=== PATIENT | male | born 1995 | race Caucasian/White ===

== ENCOUNTER 2016-10-01 16:11 | Inpatient (IN) | payer OTHER ==
[~2016-10-01] VITALS: Ht 180.3 cm; Wt 98.7 kg
[2016-10-01] MEDS ORDERED: LIDOCAINE 1% MDV 20ML VIAL As Ordered ONE (16:22)
[2016-10-01 17:30] LABS: MEAN CORPUSCULAR HEMOGLOBIN 31.2 pg (27.0-33.0); RED CELL DISTRIBUTION WIDTH 12.6 % (11.5-14.5); WHITE BLOOD COUNT 9.6 K/mm3 (4.0-10.0)
[2016-10-01 17:44] LABS: ALBUMIN/GLOBULIN RATIO 1.29 (1.00-1.93); ALKALINE PHOSPHATASE 85 U/L (45-117); ALT/SGPT 31 U/L (12-78); ANION GAP 4 MEQ/L (8-16); AST/SGOT 20 U/L (15-37); BILIRUBIN,DIRECT 0.1 MG/DL (0.0-0.2); BILIRUBIN,TOTAL 0.3 MG/DL (0.2-1.0); BLOOD UREA NITROGEN 8 MG/DL (7-18); CALCIUM LEVEL 8.5 MG/DL (8.5-10.1); CARBON DIOXIDE LEVEL 30 MEQ/L (21-32); CHLORIDE LEVEL 106 MEQ/L (98-107); CREATININE FOR GFR 1.01 MG/DL (0.70-1.30); GLOMERULAR FILTRATION RATE > 60.0 (>60); GLUCOSE, FASTING 88 MG/DL (70-105); POTASSIUM SERUM 3.7 MEQ/L (3.5-5.1); SODIUM LEVEL 140 MEQ/L (136-145); TOTAL PROTEIN 7.1 GM/DL (6.4-8.2)
[2016-10-01 18:20] LABS: METHADONE URINE NEGATIVE (NEGATIVE)
[2016-10-01] MEDS ORDERED: ACETAMINOPHEN TAB 650MG DOSE (2X325MG) PO PRN (19:45)
[2016-10-01] MEDS ORDERED: MOM 30ML SUSPENSION UDC PO PRN (19:45)
[2016-10-01] MEDS ORDERED: traZODone 50 MG TAB PO PRN (19:45)
[2016-10-01] MEDS ORDERED: MAALOX 30 ML SUSP *UDC PO PRN (19:45)
[2016-10-01 20:02] VITALS: BP 136/90
[2016-10-02 07:01] VITALS: BP 126/69
[2016-10-02 08:58] VITALS: BP 134/66
[2016-10-02 08:59] VITALS: BP_SYST 130; BP_DIAS 77; BP_DIAS 83
--- NOTE | 2016-10-02 11:32 | HPEPDOC ---
Medical History and Physical Date of Admission Oct 01, 2016 at 17:49 History and Physical PCP: [facility] ATTENDING: Dr. Franklin Jordan HPI: 21yoM admitted to [facility] for Unspecified depressive disorder, being medically examined today. Patient with lacerations bilateral forearms. 7 sutures left forearm, 2 on right forearm. Denies any fevers, chills, weakness, fatigue, HANSEN, CP, SOB, cough, palpitations, abdominal pain, N/V/D or changes in bowel or bladder habits. 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 One sister trisomy 16 Children: None ROS: As noted in HPI, otherwise 11pt ROS of systems reviewed and remarkable. Patient reports history of right knee pain. Some clicking. Denies any erythema or edema. PE: GEN: 21yoM, appears stated age. Well-nourished, well developed. No acute distress. Alert and oriented x 3. Pleasant, interactive. HEENT: Normocephalic, atraumatic. Pupils are equal, round, and reactive to light. Extraocular movements are intact. No nystagmus appreciated. Sclera are nonicteric. Conjunctiva without injection. Nose midline. Nasal turbinates without bogginess. EACs both patent BL. TMs both visualized and ivory with good cone of light, no bulging or erythema. No facial asymmetry. Moist mucous membranes. Dentition fair. Pharynx pink and moist, no cobblestoning. Neck supple , trachea midline. No lymphadenopathy or thyromegaly appreciated. CHEST: Regular rate and rhythm, +S1, +S2 LUNGS: Clear to auscultation bilaterally. No wheezes, rales, or rhonchi. Breathing appears symmetric and easy. Patient is speaking in full sentences. No accessory muscle use. ABD: Round, soft, non-tender, non-distended. +Bowel sounds throughout. No rebound or guarding. No costovertebral angle tenderness. EXT: Pulses 2+ bilaterally dorsalis pedis and radial. No lower extremity edema appreciated. SKIN: [place], dry, warm. Capillary refill <2sec. No rashes. NEURO: Alert and oriented x 3. Cranial nerves III-XII are intact. No focal deficits appreciated. EKG: Pending. A&P: 21yoM admitted to [facility] for Unspecified depressive disorder 1. Psych. Plan per Psychiatry. Obtain baseline EKG to assure the safety of psychiatric medications as they can prolong the QT interval. 2. Laceration bilateral forearm. Sutures intact. Dry dressing. No signs of infection. Monitor. Patient will be due to have sutures removed in 7-10 days. 3. Chronic right knee pain. Patient declines x-ray of the right knee. Tylenol as needed. Follow up with PCP. 4. Follow up with PCP on discharge. 5. Staff member Ed present throughout exam. Vital Signs Vital Signs Date Time Temp Pulse Resp B/P Pulse Ox O2 Delivery O2 Flow Rate FiO2 10/02/16 08:59 95 130/83 10/02/16 08:58 20 97 Room Air 10/02/16 07:01 98.7 Laboratory Data Labs 24H Laboratory Tests 2 10/01/16 16:55: Acetaminophen Level < 2.0L, Aspartate Amino Transf (AST/SGOT) 20, Alanine Aminotransferase (ALT/SGPT) 31, Alkaline Phosphatase 85, Total Bilirubin 0.3, Direct Bilirubin 0.1, Albumin 4.0, Albumin/Globulin Ratio 1.29, Anion Gap 4L, Calcium Level 8.5, Ethyl Alcohol Level < 0.003, Glomerular Filtration Rate > 60.0, Salicylates Level < 1.7L, Thyroid Stimulating Hormone (TSH) 0.749, Total Protein 7.1, Urine Amphetamines Screen NEGATIVE, Urine Benzodiazepines Screen NEGATIVE, Urine Opiates Screen NEGATIVE, Urine Barbiturates Screen NEGATIVE, Urine Cannabinoids Screen NEGATIVE, Urine Cocaine Metabolite Screen NEGATIVE, Urine Methadone Screen NEGATIVE, Urine Phencyclidine Screen NEGATIVE CBC/BMP Laboratory Tests 10/01/16 16:55 Red Blood Count 4.57, Mean Corpuscular Volume 89.0, Mean Corpuscular Hemoglobin 31.2, Mean Corpuscular Hemoglobin Concent 35.0, Red Cell Distribution Width 12.6 Home Medications No Active Prescriptions or Reported Meds Allergies Coded Allergies: No Known Allergies (Unverified , 10/01/16) Yovana Leon Oct 02, 2016 11:32
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
[2016-10-02 18:00] VITALS: BP 133/64
[2016-10-03 06:29] VITALS: BP 124/64
[2016-10-03] MEDS ORDERED: PROPRANOLOL 10 MG TAB PO PRN (14:30)
[2016-10-03 18:00] VITALS: BP 144/71
--- NOTE | 2016-10-03 19:11 | IPNPDOC ---
[facility] Progress Note Progress Note DATE OF SERVICE: 10/03/16 INTERVAL HISTORY: Medication Side effects: Has up and started on any psychiatric medication Behavior/events: No events overnight Group Attendance: Has attended groups Psychiatric Symptoms: Patient complained of multiple instances of anger, sadism , chronic emptiness from a childhood that was characterized by an emotionless father forbade any sensitivity or warmth. The patient related symptoms consistent with antisocial personality disorder/malignant narcissism VITAL SIGNS: See below. NEW TEST RESULTS: See below CURRENT MEDICATIONS: See below. MENTAL STATUS EXAMINATION: General: Well dressed with good hygiene Speech: Spontaneous and fluid Thought processes: Linear and logical Thought content: Future orientated Abstract reasoning, and computation: Intact Description of associations: Intact Description of abnormal or psychotic thoughts:Denies any suicidal or homicidal ideation. Denies any auditory or visual hallucinations. Does not appear to be responding to internal stimuli. Does not appear to be endorsing any bizarre or paranoid ideation. Judgment: Poor Insight: Poor Orientation: Alert and orientated 3 Recent and remote memory: Intact Attention span and concentration: Intact Fund of knowledge: Adequate Mood: "Fine" Affect: Euthymic with a full range DIAGNOSES: 1. Antisocial personality disorder. 2. Status post suicide attempt. ASSESSMENT: The patient screens positive for antisocial personality disorder and due to the multiple episodes of sadism reported by collateral sources as well as meeting criteria for borderline-like traits appear to support him being primarily antisocial with borderline traits, which was described by Tanisha as "malignant narcissism" MANAGEMENT PLAN: Medications: On no current psychotropic medication, talked with patient about starting Inderal 10 mg every 6 hours when necessary for anxiety and agitation as this might have some benefit for his impulsive and aggressive behavior Psychotherapy: Encourage group attendance Social: None Misc: Slit wrists appear to be healing well Disposition: The patient will need of further inpatient stay to address disposition and safety planning. TIME SPENT: minutes. Vital Signs Vital Signs Date Time Temp Pulse Resp B/P Pulse Ox O2 Delivery O2 Flow Rate FiO2 10/03/16 06:29 98.3 69 16 124/64 10/02/16 08:58 97 Room Air Current Medications Current Medications Acetaminophen (Tylenol Tab) 650 mg Q6HP PRN PO HEADACHE or DISCOMFORT; Start at 19:45; Stop 10/31/16 at 19:44 Al Hydrox/Mg Hydrox/Simethicone (Mylanta) 30 ml Q4HP PRN PO HEARTBURN/ INDIGESTION; Start 10/01/16 at 19:45; Stop 10/31/16 at 19:44 Home Med (Med Rec Complete!) ASDIRECTED XX ; Start 10/01/16 at 18:00; Stop at 18:07; Status DC Magnesium Hydroxide (Milk Of Magnesia) 30 ml DAILYPRN PRN PO CONSTIPATION; Start 10/01/16 at 19:45; Stop 10/31/16 at 19:44 Propranolol HCl (Inderal) 10 mg Q6H PRN PO anxiety/agitation; Start 10/03/16 at 14:30; Stop 11/02/16 at 14:29 Trazodone HCl (Desyrel) 50 mg QHSP PRN PO INSOMNIA; Start 10/01/16 at 19:45; Stop 10/31/16 at 19:44 Allergies Coded Allergies: No Known Allergies (Unverified , 10/01/16) GME ATTESTATION My preceptor for this patient encounter was physically present in the building during the encounter and was fully available. As needed, all aspects of the patient interview, examination, medical decision making process, and medical care plan development were reviewed and approved by the preceptor. Preceptor is aware and concurs with the plan as stated in the body of this note and will attest to such by his/her cosignature. YUMIKO DILLON DO Oct 03, 2016 19:11
[2016-10-04 06:37] VITALS: BP 142/68
[2016-10-04 18:00] VITALS: BP 135/69
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
[2016-10-05 06:20] VITALS: BP 135/69
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
[2016-10-05 18:00] VITALS: BP 139/79
[2016-10-06 06:43] VITALS: BP 130/75
--- NOTE | 2016-10-06 12:36 | IPN ---
DATE: 10/06/2016 I met with Osbaldo today. His mood is improved. 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 He is still pondering difficulties with his marriage. Further information will be sought in terms of the history that he gave us due to certain inconsistencies and reports by his mother. No change in treatment today. MENTAL STATUS EXAMINATION: Speech is normal. No disturbance of thought process. No loose associations. No abnormal psychotic thoughts. Judgment and insight are still in question. Orientation in three spheres is present. No disturbance of recent and remote memory. Attention and concentration are adequate. Fund of knowledge is full. Mood is neutral. Affect is congruent. Laboratory indicates hematocrit slightly low. Serum chemistry is unremarkable. Toxicology screen is negative. No changes in medications as of today. Appetite and sleep are adequate. DIAGNOSIS: Dysthymic disorder. Rule out personality disorder.
[2016-10-06 18:00] VITALS: BP 150/81
[2016-10-07 06:25] VITALS: BP 120/74
--- NOTE | 2016-10-07 10:19 | IPN ---
DATE OF SERVICE: 10/07/2016 Osbaldo Iglesias was on the phone today speaking to his . His mood is neutral. We will find further information as to what occurred in his marriage and what plans he has. Then, we will be referring him back to chain of command. No change in medications. Mood is good. Affect is neutral. Full fund of information. No disturbances of language. Attention and concentration are good. Recent and remote memory intact. Fully oriented. Judgment and insight are fair. No abnormal or psychotic thoughts. No loose associations. Thought process are intact. No disturbances of speech. IMPRESSION: Reactive depression, possible borderline personality, marital stressors.
[2016-10-07 18:00] VITALS: BP 130/70
[2016-10-08 06:11] VITALS: BP 111/65
[2016-10-08] MEDS ORDERED: PROP10TAB PO (07:19)
[2016-10-08] MEDS ORDERED: PROP10TA56 PO (08:45)
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
== END 2016-10-08 10:20 | disposition home or self-care (01) | DRG 881 ==
LOC: M ED 17:05 → M ED INP 17:49 → M PSY 19:55
PROVIDERS: ADMIT Psychiatry & Neurology Psychiatry; ATTEND Psychiatry & Neurology Child & Adolescent Psychiatry
PROC: 0HQEXZZ Repair Left Lower Arm Skin, External Approach (ICD-10-PCS; principal; 2016-10-01)
PROC: 0HQDXZZ Repair Right Lower Arm Skin, External Approach (ICD-10-PCS; 2016-10-01)
DX: F43.21 Adjustment disorder with depressed mood (principal); S51.811A Laceration without foreign body of right forearm, initial encounter; S51.812A Laceration without foreign body of left forearm, initial encounter; X78.8XXA Intentional self-harm by other sharp object, initial encounter; Y92.828 Other wilderness area as the place of occurrence of the external cause; M25.561 Pain in right knee; F60.2 Antisocial personality disorder; F60.3 Borderline personality disorder; M54.5 Low back pain; M25.552 Pain in left hip; Z63.0 Problems in relationship with spouse or partner

== ENCOUNTER 2016-10-09 16:45 | Emergency (ER) | payer OTHER ==
[~2016-10-09] VITALS: Ht 177.8 cm; Wt 95.3 kg
[~2016-10-09 16:45] MED LIST: PROP10TA56 PO; PROP10TAB PO
[2016-10-09 18:26] LABS: MEAN CORPUSCULAR HEMOGLOBIN 32.6 pg (27.0-33.0); MEAN CORPUSCULAR HGB CONC 36.2 g/dl (32.0-36.5); MEAN CORPUSCULAR VOLUME 90.1 fl (80.0-96.0); RED CELL DISTRIBUTION WIDTH 12.6 % (11.5-14.5); WHITE BLOOD COUNT 9.6 K/mm3 (4.0-10.0)
[2016-10-09 18:45] LABS: METHADONE URINE NEGATIVE (NEGATIVE)
[2016-10-09 18:58] LABS: ALBUMIN/GLOBULIN RATIO 1.18 (1.00-1.93); ALKALINE PHOSPHATASE 92 U/L (45-117); ALT/SGPT 42 U/L (12-78); ANION GAP 6 MEQ/L (8-16); AST/SGOT 41 U/L (15-37); BILIRUBIN,DIRECT < 0.1 MG/DL (0.0-0.2); BILIRUBIN,TOTAL 0.3 MG/DL (0.2-1.0); BLOOD UREA NITROGEN 12 MG/DL (7-18); CALCIUM LEVEL 8.6 MG/DL (8.5-10.1); CARBON DIOXIDE LEVEL 28 MEQ/L (21-32); CHLORIDE LEVEL 109 MEQ/L (98-107); CREATININE FOR GFR 1.17 MG/DL (0.70-1.30); GLOMERULAR FILTRATION RATE > 60.0 (>60); GLUCOSE, FASTING 89 MG/DL (70-105); POTASSIUM SERUM 3.9 MEQ/L (3.5-5.1); SODIUM LEVEL 143 MEQ/L (136-145); TOTAL PROTEIN 7.4 GM/DL (6.4-8.2)
[2016-10-09 20:37] VITALS: BP 148/83
== END 2016-10-09 20:39 | disposition home or self-care (01) ==
LOC: M ED 18:18
DX: Z48.02 Encounter for removal of sutures (principal); F41.1 Generalized anxiety disorder; F43.21 Adjustment disorder with depressed mood; Z79.899 Other long term (current) drug therapy
CPT/HCPCS: 36415; 80048; 80076; 80306; 84443; 85027; 99285; G0480

== ENCOUNTER 2016-10-25 02:14 | Inpatient (IN) | payer OTHER ==
[~2016-10-25] VITALS: Ht 180.3 cm; Wt 98.7 kg
[2016-10-25 02:52] LABS: MEAN CORPUSCULAR HEMOGLOBIN 31.9 pg (27.0-33.0); MEAN CORPUSCULAR HGB CONC 35.5 g/dl (32.0-36.5); MEAN CORPUSCULAR VOLUME 89.9 fl (80.0-96.0); RED CELL DISTRIBUTION WIDTH 12.6 % (11.5-14.5); WHITE BLOOD COUNT 12.8 K/mm3 (4.0-10.0)
[2016-10-25 03:26] LABS: ALBUMIN 3.9 GM/DL (3.2-5.2); ALBUMIN/GLOBULIN RATIO 1.08 (1.00-1.93); ALKALINE PHOSPHATASE 116 U/L (45-117); ALT/SGPT 39 U/L (12-78); ANION GAP 10 MEQ/L (8-16); AST/SGOT 25 U/L (15-37); BILIRUBIN,DIRECT < 0.1 MG/DL (0.0-0.2); BILIRUBIN,TOTAL 0.3 MG/DL (0.2-1.0); BLOOD UREA NITROGEN 16 MG/DL (7-18); CALCIUM LEVEL 8.3 MG/DL (8.5-10.1); CARBON DIOXIDE LEVEL 26 MEQ/L (21-32); CHLORIDE LEVEL 109 MEQ/L (98-107); CREATININE FOR GFR 1.19 MG/DL (0.70-1.30); GLOMERULAR FILTRATION RATE > 60.0 (>60); GLUCOSE, FASTING 110 MG/DL (70-105); POTASSIUM SERUM 3.3 MEQ/L (3.5-5.1); SODIUM LEVEL 145 MEQ/L (136-145); TOTAL PROTEIN 7.5 GM/DL (6.4-8.2)
[2016-10-25] MEDS ORDERED: LIDOCAINE W/EPINEPHRINE 1% 20ML VIAL As Ordered ONE (03:27)
[2016-10-25 03:47] LABS: METHADONE URINE NEGATIVE (NEGATIVE)
[2016-10-25] MEDS ORDERED: PROP10TA56 PO (05:10)
[2016-10-25] MEDS ORDERED: traZODone 50 MG TAB PO PRN (06:45)
[2016-10-25] MEDS ORDERED: MOM 30ML SUSPENSION UDC PO PRN (06:45)
[2016-10-25] MEDS ORDERED: ACETAMINOPHEN TAB 650MG DOSE (2X325MG) PO PRN (06:45)
[2016-10-25] MEDS ORDERED: MAALOX 30 ML SUSP *UDC PO PRN (06:45)
[2016-10-25 08:14] VITALS: BP 137/71
[2016-10-25] MEDS: CitaloPRAM (CeleXA) 10 MG TABLET PO SCH (09:00)
[2016-10-25 18:00] VITALS: BP 143/71
--- NOTE | 2016-10-25 23:14 | MHHPE ---
DATE OF ADMISSION: 10/25/2016 LEGAL STATUS AT ADMISSION: 9.39 legal status. CHIEF COMPLAINT: "I am very tired." HISTORY OF PRESENT ILLNESS: 21-year-old male with history of depression, adjustment disorder with depressed mood, admitted to our unit on a 9.39 legal status. According to the chart, patient came to the emergency department brought by [place] Police on a 9.41. According to the chart, patient violated a stay away order and then attempted suicide by cutting his arms. The police responded to a residence, he was witnessed speeding away in his vehicle, resulting in a high speed anna from [place] to the main gate of [place]. The police stated that the patient refused to comply with orders to surrender and required both a Taser and pepper spray. As a result of the above, patient has numerous criminal charges and the police would like notification when he is discharged. He stated that in the emergency department that he continued to struggle since discharge from our unit on 10/08/2016, that he lied about feeling better, he wanted to be discharged and get back home to his , but then he learned at discharge that he could not be going home to her since she had an order of protection in place. Patient stated in the emergency department that while at the residence his returned home with her new boyfriend, prompting his suicide attempt by cutting his arms. It was obvious that this was a suicidal attempt because patient required stitches and also patient stated "I didn't get very far with it again," referring to his cuts on 10/01/2016. Patient stated that he continues to feel depressed, suicidal, and hopeless, and was unable to contract for safety. He came up to the unit and I am seeing him after coming from the emergency department. He states that he is very tired, that he has not been able to sleep, and he is not ready to answer questions. He reports depressed mood, feelings of helplessness and hopelessness, poor impulse control, and irrational problems. Patient is laying in bed and falling asleep with very poor eye contact, sad, restricted facial expression. There is no evidence of psychotic symptoms during the interview, no auditory or visual hallucinations or delusions. However, most of the information is gathered from the review of the chart. PAST MEDICAL HISTORY: No acute medical problems. Patient has several self-inflicted wounds in his arms that required stitches. PAST PSYCHIATRIC HISTORY: As above, patient has been diagnosed with adjustment disorder with depressed mood. He was admitted to our unit on 10/01/2016. FAMILY HISTORY: No psychiatric family history. SOCIAL HISTORY: Was unable to obtain. 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 As above, patient has been from his and his has an order of protection against him. SUBSTANCE ABUSE HISTORY: He is denying problems with drugs or alcohol. Urine drug screen and blood alcohol level are negative. REVIEW OF SYSTEMS: Unable to obtain. PHYSICAL EXAMINATION: As per physician family readiness support assistant. LABORATORY DATA: CBC is unremarkable except hematocrit of 40.6. CMP shows a potassium of 3.3, rest within normal limits. TSH within normal limits. Urine drug screen (UDS) and blood alcohol level are negative. MENTAL STATUS EXAMINATION: Patient is dressed in [facility]. He is lying in bed. Poor eye contact. Mood is depressed and anxious. Affect is restricted. Patient is oriented to time, place, person, and situation. Maintains attention and concentration fairly. No evidence of auditory or visual hallucinations or delusions. Patient reports suicidal ideation and is unable to contract for safety. No homicidal thoughts. Judgment and insight are poor. DIAGNOSES: AXIS I: Undifferentiated depressive disorder. Rule out major depressive disorder versus adjustment disorder with depressed mood. AXIS II: Deferred. AXIS III: Several self-inflicted wounds in both arms. INITIAL TREATMENT PLAN: Patient was admitted on a 9.39 legal status. Complete history was obtained. With his permission, family will be contacted and database will be expanded. His medication regimen will be reviewed and changed accordingly. He will be provided with protected environment. He will be treated with individual, group, and milieu therapies. He will also receive supportive psychoeducation. Discharge planning will commence immediately. Length of stay will be between 7-10 days. Outpatient followup will be strongly recommended. The treatment plan will focus initially on depression, risk for suicide, risk to harm others, poor impulse control.
[2016-10-26 06:57] VITALS: BP 136/85
[2016-10-26] MEDS: CitaloPRAM (CeleXA) 10 MG TABLET PO SCH (09:00)
--- NOTE | 2016-10-26 11:00 | MHIPNPDOC ---
[facility] Progress Note Progress Note DATE OF SERVICE: 10/26/16 HISTORY: Day of admission VITAL SIGNS: See below. NEW TEST RESULTS: na CURRENT MEDICATIONS: See below. MENTAL STATUS EXAMINATION: Patient is a 21-year old male, who is dressed in hospital attire, good eye contact, wearing 2 large bandages, one on each forearm. Speech: Is clean and spontaneous Language skills are grossly intact Thought processes including: goal directed Thought content:, pain, criminal charges . Abstract reasoning, and computation: good. Description of associations: good. Description of abnormal or psychotic thoughts: admits to wanting to due to separation from . Not homicidal. denies psychosis and no symptoms were illicited. Judgment: poor Insight: very limited. Orientation: well oriented to person, place, time and situation. Recent and remote memory: grossly intact Attention span and concentration: good Fund of knowledge: full Mood:depressed. Affect: congruent DIAGNOSES: 1. adjustment disorder with depressed mood 2. r/o MDD 3. ASSESSMENT:Currently patient is refusing Celexa as he feels medication are "a quick fix" to a long standing problem. Education provided and discussed meds and their purpose and their role in treating depressive symptoms. Limits of medication also discussed. Would recommend changing Celexa to Wellbutrin as there is less opportunity for sexual side effects with Wellbutrin. Pt states his told him he had a seizure once but he questions this. He does not have a h/o seizure disorder. Will need to get more info from on this "seizure". Presented pt with the option of long-term psychiatric treatment at [facility] in [place]. He asked about visitors. We will get him a packet of information on the program and answer any questions that we can. Pt reports a lack of respect on the part of the in how they have treated his psychiatric symptoms, calling him a "pussy" and subjecting him to excessive exercise to the point of collapsing. He is not complaining, he is discussing what has happened to him between admissions. He was to start IOP today but tried to get the to set this aside for a month as he did not feel he needed it.This contradicts what he was saying about the not responding appropriately to his concerns.Pt admits he wanted to when he cut himself and was very angry and upset. He felt he needed his right then, as "she is the only one who makes me happy". may a new relationship already. They have been only 5 months, no children. Osbaldo is thinking that they are going to reconcile and get back together. We will have to see what the says about this. He says she is going to lift the restraining order. He denies use of alcohol or drugs. Chart reviewed. MANAGEMENT PLAN: give pt 24 hours to consider medication and placement for long- term treatment. discuss seizure with and restraining order and her view on the future of their marriage. Raise trazodone to 100 mg at hs as pt reports 50 mg is not effective for him. This afternoon pt stated he did not want to go to half-way treatment at [facility] and added "I'd rather go to [facility]". Managed Care Nurse pointed out benefits of treatment over [facility] but pt was not pursuaded to change his mind. It's likely his has influenced him and perhaps does not want him to leave [place]. He said he would consider half-way treatment "later". Sounds like what he wanted to do with IOP. Pt has still not made up his mind about taking medication for depression/anxiety. If he decides against it we will have a serious discussion about his participation in treatment. Managed Care Nurse asked space planner to notify command of pts current decisions and request a meeting so they can present their position to Osbaldo and he can make a decision after talking with them. TIME SPENT: 30 minutes. Vital Signs Vital Signs Date Time Temp Pulse Resp B/P (MAP) Pulse Ox O2 Delivery O2 Flow Rate FiO2 10/26/16 06:57 98.5 80 16 136/85 (102) 10/25/16 07:46 99 Room Air Current Medications Current Medications Acetaminophen (Tylenol Tab) 650 mg Q6HP PRN PO HEADACHE or DISCOMFORT; Start at 06:45; Stop 11/24/16 at 06:44 Al Hydrox/Mg Hydrox/Simethicone (Mylanta) 30 ml Q4HP PRN PO HEARTBURN/ INDIGESTION; Start 10/25/16 at 06:45; Stop 11/24/16 at 06:44 Citalopram Hydrobromide (CeleXA) 10 mg DAILY PO ; Start 10/25/16 at 09:00; Stop 11/24/16 at 08:59 Home Med (Med Rec Complete!) ASDIRECTED XX ; Start 10/25/16 at 05:15; Stop at 05:15; Status DC Magnesium Hydroxide (Milk Of Magnesia) 30 ml DAILYPRN PRN PO CONSTIPATION; Start 10/25/16 at 06:45; Stop 11/24/16 at 06:44 Trazodone HCl (Desyrel) 50 mg QHSP PRN PO INSOMNIA; Start 10/25/16 at 06:45; Stop 11/24/16 at 06:44 Allergies Coded Allergies: No Known Allergies (Unverified , 10/01/16) Veronica Samaniego October 26, 2016 11:00
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
[2016-10-26] MEDS ORDERED: MUPIROCIN 2% CREAM 30GM TOP PRN (11:15)
[2016-10-26 11:34] LABS: MEAN CORPUSCULAR HEMOGLOBIN 31.5 pg (27.0-33.0); MEAN CORPUSCULAR HGB CONC 34.9 g/dl (32.0-36.5); MEAN CORPUSCULAR VOLUME 90.2 fl (80.0-96.0); RED CELL DISTRIBUTION WIDTH 12.7 % (11.5-14.5); WHITE BLOOD COUNT 6.3 K/mm3 (4.0-10.0)
[2016-10-26] MEDS: CEPHALEXIN 500 MG CAP PO SCH ×3 (11:50→21:48)
[2016-10-26] MEDS ORDERED: MUPIROCIN 2% OINT 22 GM TUBE TOP PRN (12:01)
[2016-10-26 12:25] LABS: ALBUMIN 4.1 GM/DL (3.2-5.2); ALBUMIN/GLOBULIN RATIO 1.24 (1.00-1.93); ALKALINE PHOSPHATASE 83 U/L (45-117); ALT/SGPT 36 U/L (12-78); ANION GAP 8 MEQ/L (8-16); AST/SGOT 27 U/L (15-37); BILIRUBIN,TOTAL 0.5 MG/DL (0.2-1.0); BLOOD UREA NITROGEN 9 MG/DL (7-18); CALCIUM LEVEL 9.2 MG/DL (8.5-10.1); CARBON DIOXIDE LEVEL 26 MEQ/L (21-32); CHLORIDE LEVEL 106 MEQ/L (98-107); CREATININE FOR GFR 0.89 MG/DL (0.70-1.30); GLOMERULAR FILTRATION RATE > 60.0 (>60); GLUCOSE, FASTING 90 MG/DL (70-105); POTASSIUM SERUM 4.1 MEQ/L (3.5-5.1); SODIUM LEVEL 140 MEQ/L (136-145); TOTAL PROTEIN 7.4 GM/DL (6.4-8.2)
[2016-10-26 18:00] VITALS: BP 124/67
--- NOTE | 2016-10-26 18:00 | ECGEPIP ---
Stationary ECG Study [facility] Test Date: 2016-10-26 Pat Name: LILIANA VELASQUEZ Department: Room: [place] [address] Gender: M Public Health Doctor: : 1995 Requested By: Yovana Leon Order Number: [id number] Reading MD: Rosi Valdovinos Measurements Intervals [place] Rate: 69 P: 51 OR: 187 QRS: 50 QRSD: 106 T: 11 QT: 374 QTc: 402 Interpretive Statements SINUS RHYTHM WITH MARKED SINUS ARRHYTHMIA PROBABLE EARLY REPOLAR CHANGES NO PRIOR CLINICAL GARDENIA Electronically Signed On 10-26-2016 17:59:41 EDT by Rosi Valdovinos
[2016-10-26] MEDS: traZODone 100 MG TAB PO SCH (21:00)
[2016-10-27 06:34] VITALS: BP 120/64
[2016-10-27] MEDS: CitaloPRAM (CeleXA) 10 MG TABLET PO SCH (08:31)
[2016-10-27] MEDS: CEPHALEXIN 500 MG CAP PO SCH ×3 (08:32→20:09)
--- NOTE | 2016-10-27 10:25 | MHIPNPDOC ---
[facility] Progress Note Progress Note DATE OF SERVICE: 10/27/16 HISTORY: day 3 of admission VITAL SIGNS: See below. NEW TEST RESULTS: EKG shows sinus arrhythmia/pt will be advised at discharge to follow up with PCP for referral to cardiology. Will discuss with Dr. Hanna. CURRENT MEDICATIONS: Wellbutrin ordered today as pt agreed to take medication. MENTAL STATUS EXAMINATION: Patient is a 21-year old male, who is dressed in hospital attire, wearing a large bandage on each forearm, eyeglasses and adequate hygiene. Speech: Is clear, spontaneous Language skills are intact Thought processes including: goal directed Thought content: returning to , going to senior living. Abstract reasoning, and computation: good. Description of associations: good. Description of abnormal or psychotic thoughts: No psychosis, less frequent suicidal thoughts since yesterday but once in a while he thinks of it. Judgment: poor Insight: very limited Orientation: A&O x 3 Recent and remote memory: good Attention span and concentration: appears adequate Fund of knowledge: average Mood: depressed. Affect: congruent. DIAGNOSES: 1. MDD, severe, recurrent without psychotic features. 2. Alcohol abuse 3. 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 - 4.Anxiety 5.Self-mutilation 6. Right knee pain 7. History of mononucleosis 03/29 8. History of 100 pound weight loss, BMI 30.3 9. Leukocytosis 10. Hypokalemia ASSESSMENT:Pt has agreed to begin pharmacotherapy with Wellbutrin as less risk of sexual side effects. Does not want to accept long-term treatment in [place]. Demonstrates poor insight. Pt is attempting to postpone recommended treatment options like IOP, [facility]. He needs intensive follow up and according to the psychiatrist on his previous admission he suffers from Antisocial behaviors. Pt shows poor impulse control and very ineffective coping. He states today that his is being evicted and her truck and this is why he is not going to [place] for treatment opting "to take care of my family". may be moving in with her father for now. Pt states she told him she will now be faithful in the marriage. She was thinking of lifting the order of protection on 10/31 until the incident last Wednesday. is not able to visit while OOP in place. Pt is reporting nightmares but declines intervention when prazosin offered. States propranolol caused mood swings for him when ordered for anxiety. Pt reports feeling tired. pt informed Wellbutrin will not make him sleepy or tired. Instructed to dose it only in a.m. as will cause insomnia if taken late in the day. dressings to forearms, dry and intact. MANAGEMENT PLAN: Begin Wellbutrin 75 mg x 2 days then increase, if no side effects, to XL 150 mg in a.m. He decided to start an antidepressant which will help him. Next he should be placed on a mood stabilizer to address impulse control and anger. Will discuss with pt. Labs and previous records reviewed. MORIAH meeting requested. Waiting transportation assistant back from [facility]. Pt is agreeable to having the [place] police pick him up upon discharge to face arraignment on traffic infractions he is charged with. We are waiting for a call back from the Police about this and we are making the aware of this dilemma. TIME SPENT: 30 minutes. Vital Signs Vital Signs Date Time Temp Pulse Resp B/P (MAP) Pulse Ox O2 Delivery O2 Flow Rate FiO2 10/27/16 06:34 98.6 69 16 120/64 (82) 10/25/16 07:46 99 Room Air Laboratory Data 24H Labs Laboratory Tests 2 10/26/16 11:18: Anion Gap 8, Glomerular Filtration Rate > 60.0, Blood Urea Nitrogen 9, Creatinine 0.89, Sodium Level 140, Potassium Level 4.1#, Chloride Level 106, Carbon Dioxide Level 26, Calcium Level 9.2, Aspartate Amino Transf (AST/SGOT) 27 , Alanine Aminotransferase (ALT/SGPT) 36, Alkaline Phosphatase 83, Total Bilirubin 0.5#, Total Protein 7.4, Albumin 4.1, Albumin/Globulin Ratio 1.24 CBC/BMP Laboratory Tests 10/26/16 11:18 Red Blood Count 4.75, Mean Corpuscular Volume 90.2, Mean Corpuscular Hemoglobin 31.5, Mean Corpuscular Hemoglobin Concent 34.9, Red Cell Distribution Width 12.7 , Calcium Level 9.2, Aspartate Amino Transf (AST/SGOT) 27, Alanine Aminotransferase (ALT/SGPT) 36, Alkaline Phosphatase 83, Total Bilirubin 0.5 #, Total Protein 7.4, Albumin 4.1 Current Medications Current Medications Acetaminophen (Tylenol Tab) 650 mg Q6HP PRN PO HEADACHE or DISCOMFORT; Start at 06:45; Stop 11/24/16 at 06:44 Al Hydrox/Mg Hydrox/Simethicone (Mylanta) 30 ml Q4HP PRN PO HEARTBURN/ INDIGESTION; Start 10/25/16 at 06:45; Stop 11/24/16 at 06:44 Cephalexin Monohydrate (Keflex) 500 mg TID PO Last administered on 10/27/16t 08 :32; Start 10/26/16 at 09:00; Stop 11/05/16 at 08:59 Citalopram Hydrobromide (CeleXA) 10 mg DAILY PO ; Start 10/25/16 at 09:00; Stop 11/24/16 at 08:59 Home Med (Med Rec Complete!) ASDIRECTED XX ; Start 10/25/16 at 05:15; Stop at 05:15; Status DC Magnesium Hydroxide (Milk Of Magnesia) 30 ml DAILYPRN PRN PO CONSTIPATION; Start 10/25/16 at 06:45; Stop 11/24/16 at 06:44 Mupirocin (Bactroban 2% Cream) BIDP PRN TOP REDNESS/IRRITATION; Start at 11:15; Stop 10/26/16 at 12:01; Status DC Mupirocin (Bactroban 2% Ointment) APPLY TO AFFECTED AREA BIDP PRN TOP REDNESS/ IRRITATION; Start 10/26/16 at 12:01; Stop 11/25/16 at 11:14 Trazodone HCl (Desyrel) 50 mg QHSP PRN PO INSOMNIA; Start 10/25/16 at 06:45; Stop 11/24/16 at 06:44; Status Cancel Trazodone HCl (Desyrel) 100 mg QHS PO ; Start 10/26/16 at 21:00; Stop 11/25/16 at 20:59 Allergies Coded Allergies: No Known Allergies (Unverified , 10/01/16) Veronica Samaniego October 27, 2016 10:25
[2016-10-27] MEDS ORDERED: buPROPion 75 MG TAB PO ONE (10:30)
[2016-10-27 18:12] VITALS: BP 104/58
[2016-10-27] MEDS: traZODone 100 MG TAB PO SCH (20:10)
[2016-10-28 06:45] VITALS: BP 116/62
[2016-10-28] MEDS: CEPHALEXIN 500 MG CAP PO SCH ×3 (08:14→20:59)
[2016-10-28] MEDS: buPROPion 75 MG TAB PO SCH (08:14)
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
[2016-10-28 18:05] VITALS: BP 138/76
[2016-10-28] MEDS: traZODone 100 MG TAB PO SCH (21:00)
[2016-10-29 07:01] VITALS: BP 130/70
[2016-10-29] MEDS: buPROPion 75 MG TAB PO SCH (08:59)
[2016-10-29] MEDS: CEPHALEXIN 500 MG CAP PO SCH ×3 (08:59→21:33)
--- NOTE | 2016-10-29 14:40 | MHIPNPDOC ---
[facility] Progress Note Progress Note DATE OF SERVICE: 10/29/16 HISTORY: day 5 of admission VITAL SIGNS: See below. NEW TEST RESULTS: na CURRENT MEDICATIONS: See below. MENTAL STATUS EXAMINATION: Patient is a 21-year old male, who is dressed in hospital garb, stays in bed much of the day, has numerous lacerations to forearms with stables that are exposed. Speech: Is spontaneous Language skills are intact Thought processes including: grandiosity, negative statements about certain entities Thought content: appropriate. Abstract reasoning, and computation: good. Description of associations: good. Description of abnormal or psychotic thoughts: denies SI or HI Judgment: poor Insight: very limited. Orientation: well oriented Recent and remote memory: intact Attention span and concentration: good Fund of knowledge: limited Mood: euthymic Affect: congruent DIAGNOSES: 1. MDD, severe, recurrent without psychotic features. 2. Alcohol abuse 3. antisocial personality disorder 4.Anxiety 5.Self-mutilation 6. Right knee pain 7. History of mononucleosis 03/29 8. History of 100 pound weight loss, BMI 30.3 9. Leukocytosis 10. Hypokalemia ASSESSMENT:pt attended discharge planning meeting this afternoon with staff, typewriter assembler and SM. Pt will leave the unit Thursday 11/02 after MORIAH meeting in late a.m. He will be taken to [facility] court for arraignment on 12 traffic infractions he incurred on Wednesday night of this week. After arraignment, depending on the judges decision, it is recommended that he be kept on 1:1 watch under the custody of the [employer] until he is transported to [facility] in [place]. His mother and brother from [place] are in [place] and have arranged legal receptionist for him. Pt is aware of the above discharge plan and plan of events. He continues to show ambivalence to Long-term treatment and stated at the meeting he may not allow his mother to bail him out but he would remain in shelter rather than going to [place] for inpatient treatment. pt was informed that the mental health professionals involved in his care all believe inpatient terminal computer operator would be beneficial for him. MANAGEMENT PLAN: Pt will continue to take Wellbutrin until discharge. will discuss [place] with him tomorrow. will be notified of discharge plans. TIME SPENT: 30 minutes. Vital Signs Vital Signs Date Time Temp Pulse Resp B/P (MAP) Pulse Ox O2 Delivery O2 Flow Rate FiO2 10/29/16 07:01 98.5 70 16 130/70 (90) 10/25/16 07:46 99 Room Air Current Medications Current Medications Acetaminophen (Tylenol Tab) 650 mg Q6HP PRN PO HEADACHE or DISCOMFORT; Start at 06:45; Stop 11/24/16 at 06:44 Al Hydrox/Mg Hydrox/Simethicone (Mylanta) 30 ml Q4HP PRN PO HEARTBURN/ INDIGESTION; Start 10/25/16 at 06:45; Stop 11/24/16 at 06:44 Bupropion HCl (Wellbutrin) 75 mg QAM PO Last administered on 10/29/16 08:59; Start 10/28/16 at 09:00; Stop 11/27/16 at 08:59 Cephalexin Monohydrate (Keflex) 500 mg TID PO Last administered on 10/29/16 08 :59; Start 10/26/16 at 09:00; Stop 11/05/16 at 08:59 Citalopram Hydrobromide (CeleXA) 10 mg DAILY PO ; Start 10/25/16 at 09:00; Stop 10/27/16 at 10:17; Status DC Home Med (Med Rec Complete!) ASDIRECTED XX ; Start 10/25/16 at 05:15; Stop at 05:15; Status DC Magnesium Hydroxide (Milk Of Magnesia) 30 ml DAILYPRN PRN PO CONSTIPATION; Start 10/25/16 at 06:45; Stop 11/24/16 at 06:44 Mupirocin (Bactroban 2% Cream) BIDP PRN TOP REDNESS/IRRITATION; Start at 11:15; Stop 10/26/16 at 12:01; Status DC Mupirocin (Bactroban 2% Ointment) APPLY TO AFFECTED AREA BIDP PRN TOP REDNESS/ IRRITATION; Start 10/26/16 at 12:01; Stop 11/25/16 at 11:14 Trazodone HCl (Desyrel) 50 mg QHSP PRN PO INSOMNIA; Start 10/25/16 at 06:45; Stop 11/24/16 at 06:44; Status Cancel Trazodone HCl (Desyrel) 100 mg QHS PO ; Start 10/26/16 at 21:00; Stop 11/25/16 at 20:59 Allergies Coded Allergies: No Known Allergies (Unverified , 10/01/16) Veronica Samaniego October 29, 2016 14:40
--- NOTE | 2016-10-29 16:51 | ECGEPIP ---
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
[2016-10-29 18:00] VITALS: BP 129/75
[2016-10-29] MEDS: traZODone 100 MG TAB PO SCH (21:00)
[2016-10-30 06:25] VITALS: BP 104/55
[2016-10-30] MEDS: CEPHALEXIN 500 MG CAP PO SCH ×3 (08:33→22:21)
[2016-10-30] MEDS: buPROPion 75 MG TAB PO SCH (08:33)
--- NOTE | 2016-10-30 09:27 | MHIPNPDOC ---
[facility] Progress Note Progress Note DATE OF SERVICE: 10/30/16 HISTORY: day 6 of admission. Pt lying in bed refusing to engage in unit programming since he is leaving on Wednesday (3 days from now). VITAL SIGNS: See below. NEW TEST RESULTS: na CURRENT MEDICATIONS: See below. MENTAL STATUS EXAMINATION: Patient is a 21-year old male, who is lying in bed. lacerations to forearms visible, clean and healing. Speech: Is spontaneous Language skills are good Thought processes including: goal directed Thought content: mcc. Abstract reasoning, and computation: good. Description of associations: good. Description of abnormal or psychotic thoughts: denies suicidal thoughts denies homicidal thoughts, no evidence of psychosis. Judgment: poor Insight: poor. Orientation: well oriented in all spheres Recent and remote memory: good Attention span and concentration: adequate Fund of knowledge: full Mood: euthymic. Affect: congruent DIAGNOSES: 1. MDD, severe, recurrent without psychotic features. 2. Alcohol abuse 3. antisocial personality disorder 4.Anxiety 5.Self-mutilation 6. Right knee pain 7. History of mononucleosis 03/29 8. History of 100 pound weight loss, BMI 30.3 9. Leukocytosis- resolved this admission. 10. Hypokalemia - resolved this admission. ASSESSMENT: Met with pt to discuss adding lithium to his medication regime. Discussed the benefits of lithium in regards to depression and suicide ideation. Explained research supporting use of lithium in suicide prevention and how it may be helpful to Osbaldo. Explained it's role in mood stabilization. Discussed risks including kidney problems with long-term use and need to have blood draws to check levels. Pt declined lithium at this time due to kidney concerns. He will leave the subject open for discussion at a future time. Pt observed later in the day at lunch time, walking around and talking to peers. Smiling and in good spirits. MANAGEMENT PLAN: continue current medication, close observation and encourage pt participation in therapeutic programming. Pt was visited on the unit today by his mother and his brother. He is to have MORIAH meeting Wednesday at 11, followed by an arraignment downtown on his criminal charges. Transfer to [facility] is supposed to be next week. He is to remain in the custody of the [facility] on a 1:1 status until he arrives in [place]; or he is to remain in [facility] if no bail posted. TIME SPENT: 15 minutes. Vital Signs Vital Signs Date Time Temp Pulse Resp B/P (MAP) Pulse Ox O2 Delivery O2 Flow Rate FiO2 10/30/16 06:25 97.9 62 16 104/55 (71) 10/25/16 07:46 99 Room Air Current Medications Current Medications Acetaminophen (Tylenol Tab) 650 mg Q6HP PRN PO HEADACHE or DISCOMFORT; Start at 06:45; Stop 11/24/16 at 06:44 Al Hydrox/Mg Hydrox/Simethicone (Mylanta) 30 ml Q4HP PRN PO HEARTBURN/ INDIGESTION; Start 10/25/16 at 06:45; Stop 11/24/16 at 06:44 Bupropion HCl (Wellbutrin) 75 mg QAM PO Last administered on 10/30/16 08:33; Start 10/28/16 at 09:00; Stop 11/27/16 at 08:59 Cephalexin Monohydrate (Keflex) 500 mg TID PO Last administered on 10/30/16 08 :33; Start 10/26/16 at 09:00; Stop 11/05/16 at 08:59 Citalopram Hydrobromide (CeleXA) 10 mg DAILY PO ; Start 10/25/16 at 09:00; Stop 10/27/16 at 10:17; Status DC Home Med (Med Rec Complete!) ASDIRECTED XX ; Start 10/25/16 at 05:15; Stop at 05:15; Status DC Magnesium Hydroxide (Milk Of Magnesia) 30 ml DAILYPRN PRN PO CONSTIPATION; Start 10/25/16 at 06:45; Stop 11/24/16 at 06:44 Mupirocin (Bactroban 2% Cream) BIDP PRN TOP REDNESS/IRRITATION; Start at 11:15; Stop 10/26/16 at 12:01; Status DC Mupirocin (Bactroban 2% Ointment) APPLY TO AFFECTED AREA BIDP PRN TOP REDNESS/ IRRITATION; Start 10/26/16 at 12:01; Stop 11/25/16 at 11:14 Trazodone HCl (Desyrel) 50 mg QHSP PRN PO INSOMNIA; Start 10/25/16 at 06:45; Stop 11/24/16 at 06:44; Status Cancel Trazodone HCl (Desyrel) 100 mg QHS PO ; Start 10/26/16 at 21:00; Stop 11/25/16 at 20:59 Allergies Coded Allergies: No Known Allergies (Unverified , 10/01/16) Veronica Samaniego October 30, 2016 09:27
[2016-10-30 18:11] VITALS: BP 120/59
[2016-10-30] MEDS: traZODone 100 MG TAB PO SCH (22:21)
[2016-10-31 06:38] VITALS: BP 126/57
[2016-10-31] MEDS: CEPHALEXIN 500 MG CAP PO SCH ×3 (08:19→21:16)
[2016-10-31] MEDS: buPROPion 75 MG TAB PO SCH (08:19)
[2016-10-31 18:11] VITALS: BP 138/82
[2016-10-31] MEDS: traZODone 100 MG TAB PO SCH (21:00)
[2016-11-01 06:28] VITALS: BP 130/69
[2016-11-01] MEDS: buPROPion 75 MG TAB PO SCH (08:39)
[2016-11-01] MEDS: CEPHALEXIN 500 MG CAP PO SCH ×3 (08:40→20:31)
[2016-11-01 18:00] VITALS: BP 131/60
[2016-11-01] MEDS: traZODone 100 MG TAB PO SCH (20:31)
[2016-11-02 06:00] VITALS: BP 134/76
[2016-11-02] MEDS: CEPHALEXIN 500 MG CAP PO SCH (08:47)
[2016-11-02] MEDS: buPROPion 75 MG TAB PO SCH (08:48)
[2016-11-02] MEDS ORDERED: BUPR75TA5 PO (09:38)
[2016-11-02] MEDS ORDERED: TRAZ10TA PO (09:38)
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
== END 2016-11-02 11:35 | DRG 885 ==
LOC: EDBD 02:14 → M ED 03:38 → M ED INP 07:15 → M PSY 08:08
PROVIDERS: ADMIT Psychiatry & Neurology Psychiatry; ATTEND Psychiatry & Neurology Psychiatry
DX: F33.2 Major depressive disorder, recurrent severe without psychotic features (principal); F10.10 Alcohol abuse, uncomplicated; F60.2 Antisocial personality disorder; G47.00 Insomnia, unspecified; E87.6 Hypokalemia; M25.561 Pain in right knee